=== PATIENT | female | born 1980 | race Two or more races ===

== ENCOUNTER 2019-09-22 07:45 | Inpatient (IN) | payer OTHER ==
[~2019-09-22] VITALS: Ht 170.2 cm; Wt 90.7 kg
[2019-09-30] MEDS ORDERED: PERCOCET 5-3251 EACH PO (08:57)
[2019-09-30] MEDS ORDERED: COLACE100 MG PO (08:58)
== END 2019-09-30 09:11 | disposition home or self-care (01) | DRG 743 ==
LOC: O/R 09-29 06:15 → OB/GYN 09-29 06:15 → O/R 09-29 07:45 → OB/GYN 09-29 13:50
PROVIDERS: ADMIT Obstetrics & Gynecology
PROC: 0UQF7ZZ Repair Cul-de-sac, Via Natural or Artificial Opening (ICD-10-PCS; 2019-09-29)
PROC: 0USG7ZZ Reposition Vagina, Via Natural or Artificial Opening (ICD-10-PCS; 2019-09-29)
PROC: 0UT9FZZ Resection of Uterus, Via Natural or Artificial Opening With Percutaneous Endoscopic Assistance (ICD-10-PCS; principal; 2019-09-29 10:30)
DX: D25.1 Intramural leiomyoma of uterus (principal); D25.0 Submucous leiomyoma of uterus; N81.5 Vaginal enterocele; N72 Inflammatory disease of cervix uteri; N92.1 Excessive and frequent menstruation with irregular cycle

== ENCOUNTER 2019-10-06 19:41 | Inpatient (IN) | payer OTHER ==
[~2019-10-06] VITALS: Ht 170.2 cm; Wt 90.7 kg
[~2019-10-06 19:41] MED LIST: COLACE100 MG PO; PERCOCET 5-3251 EACH PO
--- NOTE | 2019-10-06 19:47 | NUR ---
PT ALERTA Y ORIENTADA X3 ESFERAS EN COMPANIA DE FAMILIAR Y PARAMEDICOS. TRASLADA DESDE [facility]. REFIERE [place] DESDE EL CLAY DE . INDICA DR MCCLURE LE REALIZO NIDIA ICTERECTOMIA EL PASADO .
--- NOTE | 2019-10-06 20:51 | NUR ---
PACIENTE ES EVALUADO POR DR. DURÁN QUIEN COLOCA CONSULTA CON DR. FELIX.
== END 2019-10-08 10:02 | disposition home or self-care (01) | DRG 921 ==
LOC: ER 19:41 → OB/GYN 20:54
PROVIDERS: ADMIT Obstetrics & Gynecology
DX: N99.820 Postprocedural hemorrhage of a genitourinary system organ or structure following a genitourinary system procedure (principal)